=== PATIENT | female | born 1965 | race Hispanic/Latino ===

== ENCOUNTER 2023-05-14 15:27 | Outpatient (CLI) | payer SELFPAY | END 2023-05-14 15:28 | disposition home or self-care (01) | LOC: CSHWCC 15:27 | PROVIDERS: ATTEND Physician Assistant | DX: T81.89XD Other complications of procedures, not elsewhere classified, subsequent encounter (principal) | CPT/HCPCS: 97605; 99213; G0463 ==

== ENCOUNTER 2023-05-17 08:46 | Outpatient (CLI) | payer SELFPAY | END 2023-05-17 08:47 | disposition home or self-care (01) | LOC: CSHWCC 08:46 | PROVIDERS: ATTEND Physician Assistant | DX: T81.89XD Other complications of procedures, not elsewhere classified, subsequent encounter (principal) | CPT/HCPCS: 97606 ==

== ENCOUNTER 2023-05-21 08:55 | Outpatient (CLI) | payer SELFPAY | END 2023-05-21 08:56 | disposition home or self-care (01) | LOC: CSHWCC 08:55 | PROVIDERS: ATTEND Preventive Medicine Undersea and Hyperbaric Medicine | DX: T81.89XD Other complications of procedures, not elsewhere classified, subsequent encounter (principal) | CPT/HCPCS: 97605 ==

== ENCOUNTER 2023-05-24 10:14 | Outpatient (CLI) | payer SELFPAY | END 2023-05-24 10:15 | disposition home or self-care (01) | LOC: CSHWCC 10:14 | PROVIDERS: ATTEND Preventive Medicine Undersea and Hyperbaric Medicine | DX: T81.89XD Other complications of procedures, not elsewhere classified, subsequent encounter (principal) | CPT/HCPCS: 99213; G0463 ==

== ENCOUNTER 2023-05-30 14:52 | Outpatient (CLI) | payer SELFPAY | END 2023-05-30 14:53 | disposition home or self-care (01) | LOC: CSHWCC 14:52 | PROVIDERS: ATTEND Physician Assistant | DX: T81.32XD Disruption of internal operation (surgical) wound, not elsewhere classified, subsequent encounter (principal); O86.02 Infection of obstetric surgical wound, deep incisional site; E11.9 Type 2 diabetes mellitus without complications; E66.01 Morbid (severe) obesity due to excess calories | CPT/HCPCS: 97605 ==

== ENCOUNTER 2023-06-01 12:36 | Outpatient (CLI) | payer SELFPAY | END 2023-06-01 12:37 | disposition home or self-care (01) | LOC: CSHWCC 12:36 | PROVIDERS: ATTEND Physician Assistant | DX: O86.02 Infection of obstetric surgical wound, deep incisional site (principal); E11.9 Type 2 diabetes mellitus without complications; T81.32XD Disruption of internal operation (surgical) wound, not elsewhere classified, subsequent encounter; E66.01 Morbid (severe) obesity due to excess calories | CPT/HCPCS: 97605; 99212; G0463 ==

== ENCOUNTER 2023-06-04 10:02 | Outpatient (CLI) | payer SELFPAY | END 2023-06-04 10:03 | disposition home or self-care (01) | LOC: CSHWCC 10:02 | PROVIDERS: ATTEND Physician Assistant | DX: T81.32XD Disruption of internal operation (surgical) wound, not elsewhere classified, subsequent encounter (principal); O86.02 Infection of obstetric surgical wound, deep incisional site; E11.9 Type 2 diabetes mellitus without complications; E66.01 Morbid (severe) obesity due to excess calories | CPT/HCPCS: 97605 ==

== ENCOUNTER 2023-06-07 08:52 | Outpatient (CLI) | payer SELFPAY | END 2023-06-07 08:53 | disposition home or self-care (01) | LOC: CSHWCC 08:52 | PROVIDERS: ATTEND Physician Assistant | DX: T81.32XD Disruption of internal operation (surgical) wound, not elsewhere classified, subsequent encounter (principal) | CPT/HCPCS: 97597 ==

== ENCOUNTER 2023-06-11 10:51 | Outpatient (CLI) | payer SELFPAY | END 2023-06-11 10:52 | disposition home or self-care (01) | LOC: CSHWCC 10:51 | PROVIDERS: ATTEND Physician Assistant | DX: T81.32XD Disruption of internal operation (surgical) wound, not elsewhere classified, subsequent encounter (principal) | CPT/HCPCS: 97605 ==

== ENCOUNTER 2023-06-14 10:32 | Outpatient (CLI) | payer SELFPAY | END 2023-06-14 10:33 | disposition home or self-care (01) | LOC: CSHWCC 10:32 | PROVIDERS: ATTEND Physician Assistant | DX: O86.02 Infection of obstetric surgical wound, deep incisional site (principal); T81.32XD Disruption of internal operation (surgical) wound, not elsewhere classified, subsequent encounter; E11.9 Type 2 diabetes mellitus without complications; E66.01 Morbid (severe) obesity due to excess calories | CPT/HCPCS: 97605 ==

== ENCOUNTER 2023-06-18 11:16 | Outpatient (CLI) | payer OTHER | END 2023-06-18 11:17 | disposition home or self-care (01) | LOC: CSHWCC 11:16 | PROVIDERS: ATTEND Physician Assistant | DX: T81.32XD Disruption of internal operation (surgical) wound, not elsewhere classified, subsequent encounter (principal); O86.02 Infection of obstetric surgical wound, deep incisional site; E66.01 Morbid (severe) obesity due to excess calories; E11.9 Type 2 diabetes mellitus without complications | CPT/HCPCS: 97605 ==

== ENCOUNTER 2023-06-22 08:43 | Outpatient (CLI) | payer OTHER | END 2023-06-22 08:44 | disposition home or self-care (01) | LOC: CSHWCC 08:43 | PROVIDERS: ATTEND Physician Assistant | DX: T81.32XD Disruption of internal operation (surgical) wound, not elsewhere classified, subsequent encounter (principal); E11.9 Type 2 diabetes mellitus without complications; E66.01 Morbid (severe) obesity due to excess calories; O86.02 Infection of obstetric surgical wound, deep incisional site | CPT/HCPCS: 97605 ==

== ENCOUNTER 2023-06-25 08:07 | Outpatient (CLI) | payer SELFPAY | END 2023-06-25 08:08 | disposition home or self-care (01) | LOC: CSHWCC 08:07 | PROVIDERS: ATTEND Physician Assistant | DX: T81.32XD Disruption of internal operation (surgical) wound, not elsewhere classified, subsequent encounter (principal); E11.9 Type 2 diabetes mellitus without complications; E66.01 Morbid (severe) obesity due to excess calories | CPT/HCPCS: 97605 ==

== ENCOUNTER 2023-07-02 14:17 | Outpatient (CLI) | payer SELFPAY | END 2023-07-02 14:18 | disposition home or self-care (01) | LOC: CSHWCC 14:17 | PROVIDERS: ATTEND Preventive Medicine Undersea and Hyperbaric Medicine | DX: T81.32XD Disruption of internal operation (surgical) wound, not elsewhere classified, subsequent encounter (principal); E11.9 Type 2 diabetes mellitus without complications; E66.01 Morbid (severe) obesity due to excess calories | CPT/HCPCS: 97605 ==

== ENCOUNTER 2023-07-10 08:21 | Outpatient (CLI) | payer SELFPAY | END 2023-07-10 08:22 | disposition home or self-care (01) | LOC: CSHWCC 08:21 | PROVIDERS: ATTEND Physician Assistant | DX: T81.32XD Disruption of internal operation (surgical) wound, not elsewhere classified, subsequent encounter (principal); E11.9 Type 2 diabetes mellitus without complications; E66.01 Morbid (severe) obesity due to excess calories | CPT/HCPCS: 97607 ==

== ENCOUNTER 2023-07-20 12:14 | Outpatient (CLI) | payer OTHER, SELFPAY | END 2023-07-20 12:15 | disposition home or self-care (01) | LOC: CSHWCC 12:14 | PROVIDERS: ATTEND Physician Assistant | DX: T81.32XD Disruption of internal operation (surgical) wound, not elsewhere classified, subsequent encounter (principal); E11.9 Type 2 diabetes mellitus without complications; E66.01 Morbid (severe) obesity due to excess calories | CPT/HCPCS: 97605 ==

== ENCOUNTER 2023-07-23 09:50 | Outpatient (CLI) | payer OTHER, SELFPAY | END 2023-07-23 09:51 | disposition home or self-care (01) | LOC: CSHWCC 09:50 | PROVIDERS: ATTEND Physician Assistant | DX: T81.32XD Disruption of internal operation (surgical) wound, not elsewhere classified, subsequent encounter (principal); E11.9 Type 2 diabetes mellitus without complications; E66.01 Morbid (severe) obesity due to excess calories | CPT/HCPCS: 99213; G0463 ==

== ENCOUNTER 2023-08-13 08:06 | Outpatient (CLI) | payer OTHER | END 2023-08-13 08:07 | disposition home or self-care (01) | LOC: CSHWCC 08:06 | PROVIDERS: ATTEND Preventive Medicine Undersea and Hyperbaric Medicine | DX: T81.32XD Disruption of internal operation (surgical) wound, not elsewhere classified, subsequent encounter (principal); E11.9 Type 2 diabetes mellitus without complications; E66.01 Morbid (severe) obesity due to excess calories | CPT/HCPCS: 99213; G0463 ==

== ENCOUNTER 2023-08-24 08:44 | Outpatient (CLI) | payer OTHER | END 2023-08-24 08:45 | disposition home or self-care (01) | LOC: CSHWCC 08:44 | PROVIDERS: ATTEND Preventive Medicine Undersea and Hyperbaric Medicine | DX: T81.32XD Disruption of internal operation (surgical) wound, not elsewhere classified, subsequent encounter (principal); E11.9 Type 2 diabetes mellitus without complications; E66.01 Morbid (severe) obesity due to excess calories | CPT/HCPCS: 99213; G0463 ==